=== PATIENT | male | born 1950 | race Caucasian/White ===

== ENCOUNTER 2019-03-24 08:15 | Inpatient (IN) | payer MEDICARE ==
[2019-03-24] MEDS ORDERED: Diltiazem 25 MG/5 ML SDV IVPUSH ONE ×3 (08:22→16:00)
[2019-03-24] MEDS: Sodium Chloride 0.9% 1,000 ML IV SCH ×3 (08:29→17:57)
--- NOTE | 2019-03-24 09:05 | CR ---
Chest: Frontal view of the chest was obtained. Comparison: Prior chest CT study of 01/22/19. Diffuse increased density is noted within the left lung base. Lung markings are also mildly increased within the right base. Expansile lesion noted with posterior right 6th rib which appears stable from previous chest CT. Impression: 1. Increased density within the left lung base as well as increased lung markings on the right lung base. Findings are most likely due to pneumonia and bronchitis. Please correlate with the patient's symptoms. 2. Expansile lesion within the posterior right 6th rib which is stable from prior CT exam. Diagnostic code #5 This report was dictated in [place] Standard Time
[2019-03-24 09:25] LABS: BLOOD UREA NITROGEN,BUN 33 mg/dL (7.0-18.0); CARBON DIOXIDE,CO2 20.3 mmol/L (21.0-32.0); CHLORIDE,CL 104 mmol/L (98-107); GLUCOSE RANDOM 191 mg/dL (74-106); POTASSIUM,K 3.8 mmol/L (3.5-5.1); SODIUM,NA 140 mmol/L (136-148)
[2019-03-24] MEDS ORDERED: Enoxaparin 100 MG/1 ML Syringe SUBCUT ONE (09:49)
[2019-03-24] MEDS ORDERED: Piperacillin/Tazobactam 3.375 GM in Sodium Chloride 0.9% 50 ML IV ONE (09:52)
[2019-03-24] MEDS ORDERED: Diltiazem 100 MG in Sodium Chloride 0.9% 100 ML IV SCH (10:00)
[2019-03-24] MEDS ORDERED: Diltiazem 125 MG in Sodium Chloride 0.9% 100 ML IV SCH (10:00)
--- NOTE | 2019-03-24 10:00 | EDM.PDOC ---
ED HPI GENERAL MEDICAL PROBLEM - General Chief Complaint: Respiratory Problem Stated Complaint: TROUBLE BREATHING Time Seen by Provider: 03/24/19 09:55 Source of Information: Reports: Patient, EMS - History of Present Illness INITIAL COMMENTS - FREE TEXT/NARRATIVE: HISTORY AND PHYSICAL: History of present illness: [pt via EMS Patient has a history of stage IV lung cancer with his first round of chemo on Sunday he was up and about the community T today with acute onset shortness of breath and hypoxia 88% on room air generally not on home oxygen He arrives with 5 L nonrebreather satting 94% no distress, room air 88% ] Review of systems: As per history of present illness and below otherwise all systems reviewed and negative. Past medical history: As per history of present illness and as reviewed below otherwise noncontributory. Surgical history: As per history of present illness and as reviewed below otherwise noncontributory. Social history: No reported history of drug or alcohol abuse. Family history: As per history of present illness and as reviewed below otherwise noncontributory. Physical exam: HEENT: Atraumatic, normocephalic, pupils reactive, negative for conjunctival pallor or scleral icterus, mucous membranes moist, throat clear, neck supple, nontender, trachea midline. Lungs: Bilateral crackles at base, breath sounds equal bilaterally, chest nontender. Heart: S1S2, regular, negative for clicks, rubs, or JVD. Abdomen: Soft, nondistended, nontender. Negative for masses or hepatosplenomegaly. Negative for costovertebral tenderness. Pelvis: Stable nontender. Genitourinary: Deferred. Rectal: Deferred. Extremities: Atraumatic, negative for cords or calf pain. Neurovascular unremarkable. Neuro: Awake, alert, oriented. Cranial nerves II through XII unremarkable. Cerebellum unremarkable. Motor and sensory unremarkable throughout. Exam nonfocal. Diagnostics: [cbc CMP UA troponin INR ] ekg Chest 1 view Therapeutics: [Normal saline Cardizem 25 IV followed by 20 IV cardizem drip Lovenox Comycin Zosyn Impression: [Hypoxia Pneumonia Atrial fibrillation with RVR r/o PE Leukopenia Age for lung cancer on chemotherapy Chronic history of baseline ] Definitive disposition and diagnosis as appropriate pending reevaluation and review of above. - Related Data Allergies Allergy/AdvReac Type Severity Reaction Status Date / Time atorvastatin [From Lipitor] Allergy Rash Verified 03/24/19 08:21 Past Medical History HEENT History: Reports: Impaired Vision Cardiovascular History: Reports: Hypertension Respiratory History: Reports: None Gastrointestinal History: Reports: None Genitourinary History: Reports: None Musculoskeletal History: Reports: None Neurological History: Reports: None Psychiatric History: Reports: None Endocrine/Metabolic History: Reports: Diabetes, Type II Hematologic History: Reports: None Immunologic History: Reports: None Oncologic (Cancer) History: Reports: Lung Dermatologic History: Reports: None - Infectious Disease History Infectious Disease History: Reports: Chicken Pox, Mumps - Past Surgical History Head Surgeries/Procedures: Reports: None HEENT Surgical History: Reports: None Cardiovascular Surgical History: Reports: None Respiratory Surgical History: Reports: None GI Surgical History: Reports: None Male Surgical History: Reports: None Endocrine Surgical History: Reports: None Neurological Surgical History: Reports: None Musculoskeletal Surgical History: Reports: None Oncologic Surgical History: Reports: None Dermatological Surgical History: Reports: None Social & Family History - Family History Family Medical History: Noncontributory - Tobacco Use Smoking Status *Q: Former Smoker Used Tobacco, but Quit: Yes Month/Year Tobacco Last Used: 2004 - Caffeine Use Caffeine Use: Reports: Coffee - Recreational Drug Use Recreational Drug Use: No ED ROS GENERAL - Review of Systems Review Of Systems: See Below ED EXAM, GENERAL - Physical Exam Exam: See Below Course - Vital Signs Last Recorded V/S: Last Vital Signs Temp 97.6 F 03/24/19 08:21 Pulse 98 03/24/19 09:20 Resp 30 H 03/24/19 08:21 BP 125/85 03/24/19 08:21 Pulse Ox 95 03/24/19 08:21 - Orders/Labs/Meds Orders: Active Orders 24 hr Category Date Time Status EKG Documentation Completion [RC] STAT Care 03/24/19 08:28 Active CULTURE BLOOD [BC] Stat Lab 03/24/19 08:30 Received CULTURE BLOOD [BC] Stat Lab 03/24/19 08:47 Received UA RFX LION AND CULT IF INDIC [URIN] Stat Lab 03/24/19 08:23 Ordered Diltiazem [Cardizem] 100 mg Med 03/24/19 10:00 Active Sodium Chloride 0.9% [Normal Saline] 100 ml IV NOW Piperacillin/Tazobactam [Piperacil-Tazobact] 3.375 gm Med 03/24/19 09:52 Active Sodium Chloride 0.9% [Normal Saline] 50 ml IV ONETIME Sodium Chloride 0.9% [Normal Saline] 1,000 ml Med 03/24/19 08:30 Active IV STAT Vancomycin 1 gm Med 03/24/19 09:52 Active Sodium Chloride 0.9% [Normal Saline (AdvBag)] 250 ml IV ONETIME Blood Culture x2 Reflex Set [OM.PC] Stat Oth 03/24/19 08:24 Ordered Medication Orders Sodium Chloride (Normal Saline) 1,000 mls @ 125 mls/hr IV STAT ODILIA Last Admin: 03/24/19 08:29 Dose: 125 mls/hr Piperacillin Sod/Tazobactam (Sod 3.375 gm/ Sodium Chloride) 50 mls @ 100 mls/ hr IV ONETIME ONE Stop: 03/24/19 10:21 Vancomycin HCl 1 gm/ Sodium (Chloride) 250 mls @ 166 mls/hr IV ONETIME ONE Stop: 03/24/19 11:22 Diltiazem HCl 100 mg/ Sodium (Chloride) 100 mls @ 10 mls/hr IV NOW [facility]; Protocol Labs: Laboratory Tests 03/24/19 03/24/19 03/24/19 Range/Units 08:30 08:30 08:30 WBC 0.43 L (4.0-11.0) K/uL RBC 3.57 L (4.50-5.90) M/uL Hgb 10.7 L (13.0-17.0) g/dL Hct 32.2 L (38.0-50.0) % MCV 90.2 (80.0-98.0) fL MCH 30.0 (27.0-32.0) pg MCHC 33.2 (31.0-37.0) g/dL RDW Std Deviation 57.1 (28.0-62.0) fl RDW Coeff of Pipe 17 H (11.0-15.0) % Plt Count 67 L (150-400) K/uL MPV 9.20 (7.40-12.00) fL Add Manual Diff YES Neutrophils % (Manual) 22 L (48.0-80.0) % Band Neutrophils % 58 % Lymphocytes % (Manual) 8 L (16.0-40.0) % Monocytes % (Manual) 10 (0.0-15.0) % Metamyelocytes % 2 % Nucleated RBC % 0.0 /100WBC Absolute Seg Neuts 0.1 L (1.4-5.7) Band Neutrophils # 0.2 Lymphocytes # (Manual) 0.0 L (0.6-2.4) Monocytes # (Manual) 0.0 (0.0-0.8) Absolute Metamyelocyte 0 Nucleated RBCs # 0 K/uL Toxic Granulation 2+ MODERATE Dohle Bodies 1+ SLIGHT INR 0.92 Lactate (0.20-2.00) mmol/L Sodium 140 (136-148) mmol/L Potassium 3.8 (3.5-5.1) mmol/L Chloride 104 (98-107) mmol/L Carbon Dioxide 20.3 L (21.0-32.0) mmol/L BUN 33 H (7.0-18.0) mg/dL Creatinine 0.8 (0.8-1.3) mg/dL Est Cr Clr Drug Dosing 93.78 mL/min Estimated GFR (MDRD) > 60.0 ml/min Glucose 191 H (74-106) mg/dL Calcium 8.1 L (8.5-10.1) mg/dL Total Bilirubin 0.3 (0.2-1.0) mg/dL AST 25 (15-37) IU/L ALT 25 (14-63) IU/L Alkaline Phosphatase 73 (46-116) U/L Troponin I < 0.050 (0.000-0.056) ng/mL Total Protein 6.5 (6.4-8.2) g/dL Albumin 1.6 L (3.4-5.0) g/dL Globulin 4.9 H (2.6-4.0) g/dL Albumin/Globulin Ratio 0.3 L (0.9-1.6) 03/24/19 Range/Units 08:30 WBC (4.0-11.0) K/uL RBC (4.50-5.90) M/uL Hgb (13.0-17.0) g/dL Hct (38.0-50.0) % MCV (80.0-98.0) fL MCH (27.0-32.0) pg MCHC (31.0-37.0) g/dL RDW Std Deviation (28.0-62.0) fl RDW Coeff of Pipe (11.0-15.0) % Plt Count (150-400) K/uL MPV (7.40-12.00) fL Add Manual Diff Neutrophils % (Manual) (48.0-80.0) % Band Neutrophils % % Lymphocytes % (Manual) (16.0-40.0) % Monocytes % (Manual) (0.0-15.0) % Metamyelocytes % % Nucleated RBC % /100WBC Absolute Seg Neuts (1.4-5.7) Band Neutrophils # Lymphocytes # (Manual) (0.6-2.4) Monocytes # (Manual) (0.0-0.8) Absolute Metamyelocyte Nucleated RBCs # K/uL Toxic Granulation Dohle Bodies INR Lactate 1.8 (0.20-2.00) mmol/L Sodium (136-148) mmol/L Potassium (3.5-5.1) mmol/L Chloride (98-107) mmol/L Carbon Dioxide (21.0-32.0) mmol/L BUN (7.0-18.0) mg/dL Creatinine (0.8-1.3) mg/dL Est Cr Clr Drug Dosing mL/min Estimated GFR (MDRD) ml/min Glucose (74-106) mg/dL Calcium (8.5-10.1) mg/dL Total Bilirubin (0.2-1.0) mg/dL AST (15-37) IU/L ALT (14-63) IU/L Alkaline Phosphatase (46-116) U/L Troponin I (0.000-0.056) ng/mL Total Protein (6.4-8.2) g/dL Albumin (3.4-5.0) g/dL Globulin (2.6-4.0) g/dL Albumin/Globulin Ratio (0.9-1.6) Meds: Medications Generic Name Dose Route Start Last Admin Trade Name Freq PRN Reason Stop Dose Admin Sodium Chloride 1,000 mls @ 125 mls/hr 03/24/19 08:30 03/24/19 08:29 Normal Saline IV 125 mls/hr STAT ODILIA Administration Piperacillin Sod/Tazobactam 50 mls @ 100 mls/hr 03/24/19 09:52 Sod 3.375 gm/ Sodium Chloride IV 03/24/19 10:21 ONETIME ONE Vancomycin HCl 1 gm/ Sodium 250 mls @ 166 mls/hr 03/24/19 09:52 Chloride IV 03/24/19 11:22 ONETIME ONE Diltiazem HCl 100 mg/ Sodium 100 mls @ 10 mls/hr 03/24/19 10:00 Chloride IV NOW ODILIA Protocol 10 MG/HR Discontinued Medications Generic Name Dose Route Start Last Admin Trade Name [place] PRN Reason Stop Dose Admin Diltiazem HCl 25 mg 03/24/19 08:22 03/24/19 08:28 Diltiazem IVPUSH 03/24/19 08:23 25 mg ONETIME ONE Administration Diltiazem HCl 20 mg 03/24/19 08:48 03/24/19 08:54 Diltiazem IVPUSH 03/24/19 08:49 20 mg ONETIME ONE Administration Enoxaparin Sodium 100 mg 03/24/19 09:49 Lovenox SUBCUT 03/24/19 09:50 ONETIME ONE Diltiazem HCl 125 mg/ Sodium 125 mls @ 10 mls/hr 03/24/19 10:00 Chloride IV NOW ODILIA Protocol 10 MG/HR Departure - Departure Time of Disposition: 09:59 Disposition: Admitted As Inpatient 68 Condition: Poor Clinical Impression: Hypoxia, Pneumonia, Atrial fibrillation with RVR - Discharge Information Referrals: Chris Bauer MD [Primary Care Provider] - Forms: ED Department Discharge Sepsis Event Note - Evaluation Sepsis Screening Result: Possible Sepsis Risk - Focused Exam Vital Signs: Vital Signs Temp Pulse Resp BP Pulse Ox 03/24/19 09:20 98 03/24/19 08:49 106 H 03/24/19 08:21 97.6 F 178 H 30 H 125/85 95 Date Exam was Performed: 03/24/19 Time Exam was Performed: 10:00 - My Orders Last 24 Hours: My Active Orders 03/24/19 08:23 UA RFX LION AND CULT IF INDIC [URIN] Stat 03/24/19 08:24 Blood Culture x2 Reflex Set [OM.PC] Stat 03/24/19 08:28 EKG Documentation Completion [RC] STAT 03/24/19 08:30 CULTURE BLOOD [BC] Stat Sodium Chloride 0.9% [Normal Saline] 1,000 ml IV STAT 03/24/19 08:47 CULTURE BLOOD [BC] Stat 03/24/19 09:52 Piperacillin/Tazobactam [Piperacil-Tazobact] 3.375 gm Sodium Chloride 0.9% [ Normal Saline] 50 ml IV ONETIME Vancomycin 1 gm Sodium Chloride 0.9% [Normal Saline (AdvBag)] 250 ml IV ONETIME 03/24/19 10:00 Diltiazem [Cardizem] 100 mg Sodium Chloride 0.9% [Normal Saline] 100 ml IV NOW - Assessment/Plan Last 24 Hours: My Active Orders 03/24/19 08:23 UA RFX LION AND CULT IF INDIC [URIN] Stat 03/24/19 08:24 Blood Culture x2 Reflex Set [OM.PC] Stat 03/24/19 08:28 EKG Documentation Completion [RC] STAT 03/24/19 08:30 CULTURE BLOOD [BC] Stat Sodium Chloride 0.9% [Normal Saline] 1,000 ml IV STAT 03/24/19 08:47 CULTURE BLOOD [BC] Stat 03/24/19 09:52 Piperacillin/Tazobactam [Piperacil-Tazobact] 3.375 gm Sodium Chloride 0.9% [ Normal Saline] 50 ml IV ONETIME Vancomycin 1 gm Sodium Chloride 0.9% [Normal Saline (AdvBag)] 250 ml IV ONETIME 03/24/19 10:00 Diltiazem [Cardizem] 100 mg Sodium Chloride 0.9% [Normal Saline] 100 ml IV NOW
[2019-03-24] MEDS ORDERED: Albuterol/Ipratropium 3.0-0.5 MG/3 ML Neb Soln NEB PRN (11:40)
[2019-03-24] MEDS ORDERED: Metoprolol Tartrate 5 MG/5 ML SDV IVPUSH ONE (11:40)
[2019-03-24] MEDS ORDERED: Piperacillin/Tazobactam 4.5 GM in Sodium Chloride 0.9% 100 ML IV SCH (11:45)
--- NOTE | 2019-03-24 11:51 | PCM.HP.2 ---
Addendum entered and electronically signed by Oriana Guzmán DO 03/24/19 16: 39: After the patient was admitted to the ICU, His HR was still elevated in the 140s-150s with Diltiazem drip and metoprolol. He was anticoagulated with full dose lovenox and warfarin. A CTA was obtained and showed PE with right heart strain and left sided pneumonia. He had been satting in the 90s on 5L. He received Levaquin, Zosyn, and Vanco while admitted. Echo was obtained but results were not back at time of transfer. It was felt that he would benefit from transfer to a higher level of care with an wire harness design engineer available. This was discussed with the patient who was agreeable. This was discussed with Dr. Fisher, ER physician, who accepted the patient. Patient will be transferred via ALS to [facility] in [place]. Original Note: <Oriana Guzmán - Last Filed: 03/24/19 11:46> H&P History of Present Illness - General Date of Service: 03/24/19 Admit Problem/Dx: Admission Diagnosis/Problem Admission Diagnosis/Problem Hypoxia - History of Present Illness Initial Comments - Free Text/Narative: The patient is a 68 year old male with past medical history of Stave IV lung cancer, HTN, hyperlipidemia, and DMII who had his first round of chemo on . For the past few days he has become more short of breath with productive cough. Has poor appetite. Denies fever/chills, chest pain, abdominal pain, nausea/vomiting, constipation/diarrhea, burning with urination. Denies hx of CHF , CO, COPD, or asthma. In the ER, work up found that he was pancytopenic, negative troponin. CXR showed increased density in bilateral lung bases consistent with pneumonia and stable lesion on right 6th rib. EKG showed Afib with RVR with rate of 179, no hx of Afib. He received 2 doses of Diltiazem with short term improvement but then it increased to 130s-140s and he was started on a diltiazem drip. He was also given full dose Lovenox. He was started on Vanco and Zosyn for pneumonia. PCP- Dr. Bauer - Related Data Allergies/Adverse Reactions: Allergies Allergy/AdvReac Type Severity Reaction Status Date / Time atorvastatin [From Lipitor] Allergy Rash Verified 03/24/19 08:21 Home Medications: Home Meds Fenofibrate Nanocrystallized [Fenofibrate] 145 mg PO DAILY 03/24/19 [History] Folic Acid 1 mg PO DAILY 03/24/19 [History] Losartan [Cozaar] 50 mg PO DAILY 03/24/19 [History] Metoprolol Succinate [Toprol XL 50mg] 50 mg PO DAILY 03/24/19 [History] Pantoprazole [ProTONIX] 40 mg PO BID 03/24/19 [History] Rosuvastatin Calcium 20 mg PO DAILY 03/24/19 [History] Sucralfate 1 gm PO BID 03/24/19 [History] dexAMETHasone [Dexamethasone] 4 mg PO DAILY 03/24/19 [History] metFORMIN [Glucophage] 500 mg PO BIDMEALS 03/24/19 [History] ondansetron HCL [Ondansetron HCl] 8 mg PO TID PRN 03/24/19 [History] Past Medical History HEENT History: Reports: Impaired Vision Cardiovascular History: Reports: Hypertension Respiratory History: Reports: None Gastrointestinal History: Reports: None Genitourinary History: Reports: None Musculoskeletal History: Reports: None Neurological History: Reports: None Psychiatric History: Reports: None Endocrine/Metabolic History: Reports: Diabetes, Type II Hematologic History: Reports: None Immunologic History: Reports: None Oncologic (Cancer) History: Reports: Lung Dermatologic History: Reports: None - Infectious Disease History Infectious Disease History: Reports: Chicken Pox, Mumps - Past Surgical History Head Surgeries/Procedures: Reports: None HEENT Surgical History: Reports: None Cardiovascular Surgical History: Reports: None Respiratory Surgical History: Reports: None GI Surgical History: Reports: None Male Surgical History: Reports: None Endocrine Surgical History: Reports: None Neurological Surgical History: Reports: None Musculoskeletal Surgical History: Reports: None Oncologic Surgical History: Reports: None Dermatological Surgical History: Reports: None Social & Family History - Family History Family Medical History: Noncontributory - Tobacco Use Smoking Status *Q: Former Smoker Used Tobacco, but Quit: Yes Month/Year Tobacco Last Used: 2004 - Caffeine Use Caffeine Use: Reports: Coffee - Recreational Drug Use Recreational Drug Use: No H&P Review of Systems - Review of Systems: Review Of Systems: See Below General: Reports: Weakness, Decreased Appetite. Denies: Fever, Chills HEENT: Reports: No Symptoms Pulmonary: Reports: Shortness of Breath, Wheezing, Cough Cardiovascular: Denies: Chest Pain, Edema Gastrointestinal: Reports: No Symptoms Genitourinary: Reports: No Symptoms Musculoskeletal: Reports: No Symptoms Skin: Reports: No Symptoms Psychiatric: Reports: No Symptoms Hematologic/Lymphatic: Reports: Anemia Immunologic: Reports: No Symptoms Exam - Exam Exam: See Below - Vital Signs Vital Signs: Last Vital Signs Temp 97.6 F 03/24/19 10:26 Pulse 139 H 03/24/19 10:26 Resp 26 H 03/24/19 10:26 BP 129/62 03/24/19 10: Pulse Ox 93 L 03/24/19 10:26 Weight: 82.236 kg - Exam Quality Assessment: Supplemental Oxygen General: Alert, Oriented, Cooperative HEENT: Conjunctiva Clear, EOMI, Posterior Pharynx Clear, Pupils Equal, Pupils Reactive Neck: Supple Lungs: Crackles, Rhonchi. No: Normal Respiratory Effort Cardiovascular: Irregular Rhythm. No: Regular Rhythm GI/Abdominal Exam: Normal Bowel Sounds, Soft, Non-Tender, No Distention Extremities: No Pedal Edema Skin: Warm, Dry, Intact Neuro Extensive - Mental Status: Alert, Oriented x3 Psychiatric: Alert, Normal Affect, Normal Mood - Patient Data Lab Results Last 24 hrs: Laboratory Results - last 24 hr 03/24/19 03/24/19 03/24/19 Range/Units 08:30 08:30 08:30 WBC 0.43 L (4.0-11.0) K/uL RBC 3.57 L (4.50-5.90) M/uL Hgb 10.7 L (13.0-17.0) g/dL Hct 32.2 L (38.0-50.0) % MCV 90.2 (80.0-98.0) fL MCH 30.0 (27.0-32.0) pg MCHC 33.2 (31.0-37.0) g/dL RDW Std Deviation 57.1 (28.0-62.0) fl RDW Coeff of Pipe 17 H (11.0-15.0) % Plt Count 67 L (150-400) K/uL MPV 9.20 (7.40-12.00) fL Add Manual Diff YES Neutrophils % (Manual) 22 L (48.0-80.0) % Band Neutrophils % 58 % Lymphocytes % (Manual) 8 L (16.0-40.0) % Monocytes % (Manual) 10 (0.0-15.0) % Metamyelocytes % 2 % Nucleated RBC % 0.0 /100WBC Absolute Seg Neuts 0.1 L (1.4-5.7) Band Neutrophils # 0.2 Lymphocytes # (Manual) 0.0 L (0.6-2.4) Monocytes # (Manual) 0.0 (0.0-0.8) Absolute Metamyelocyte 0 Nucleated RBCs # 0 K/uL Toxic Granulation 2+ MODERATE Dohle Bodies 1+ SLIGHT INR 0.92 Lactate (0.20-2.00) mmol/L Sodium 140 (136-148) mmol/L Potassium 3.8 (3.5-5.1) mmol/L Chloride 104 (98-107) mmol/L Carbon Dioxide 20.3 L (21.0-32.0) mmol/L BUN 33 H (7.0-18.0) mg/dL Creatinine 0.8 (0.8-1.3) mg/dL Est Cr Clr Drug Dosing 93.78 mL/min Estimated GFR (MDRD) > 60.0 ml/min Glucose 191 H (74-106) mg/dL Calcium 8.1 L (8.5-10.1) mg/dL Total Bilirubin 0.3 (0.2-1.0) mg/dL AST 25 (15-37) IU/L ALT 25 (14-63) IU/L Alkaline Phosphatase 73 (46-116) U/L Troponin I < 0.050 (0.000-0.056) ng/mL Total Protein 6.5 (6.4-8.2) g/dL Albumin 1.6 L (3.4-5.0) g/dL Globulin 4.9 H (2.6-4.0) g/dL Albumin/Globulin Ratio 0.3 L (0.9-1.6) 03/24/19 Range/Units 08:30 WBC (4.0-11.0) K/uL RBC (4.50-5.90) M/uL Hgb (13.0-17.0) g/dL Hct (38.0-50.0) % MCV (80.0-98.0) fL MCH (27.0-32.0) pg MCHC (31.0-37.0) g/dL RDW Std Deviation (28.0-62.0) fl RDW Coeff of Pipe (11.0-15.0) % Plt Count (150-400) K/uL MPV (7.40-12.00) fL Add Manual Diff Neutrophils % (Manual) (48.0-80.0) % Band Neutrophils % % Lymphocytes % (Manual) (16.0-40.0) % Monocytes % (Manual) (0.0-15.0) % Metamyelocytes % % Nucleated RBC % /100WBC Absolute Seg Neuts (1.4-5.7) Band Neutrophils # Lymphocytes # (Manual) (0.6-2.4) Monocytes # (Manual) (0.0-0.8) Absolute Metamyelocyte Nucleated RBCs # K/uL Toxic Granulation Dohle Bodies INR Lactate 1.8 (0.20-2.00) mmol/L Sodium (136-148) mmol/L Potassium (3.5-5.1) mmol/L Chloride (98-107) mmol/L Carbon Dioxide (21.0-32.0) mmol/L BUN (7.0-18.0) mg/dL Creatinine (0.8-1.3) mg/dL Est Cr Clr Drug Dosing mL/min Estimated GFR (MDRD) ml/min Glucose (74-106) mg/dL Calcium (8.5-10.1) mg/dL Total Bilirubin (0.2-1.0) mg/dL AST (15-37) IU/L ALT (14-63) IU/L Alkaline Phosphatase (46-116) U/L Troponin I (0.000-0.056) ng/mL Total Protein (6.4-8.2) g/dL Albumin (3.4-5.0) g/dL Globulin (2.6-4.0) g/dL Albumin/Globulin Ratio (0.9-1.6) Result Diagrams: 03/24/19 08:30 03/24/19 08:30 Sepsis Event Note - Evaluation Sepsis Screening Result: Possible Sepsis Risk - Focused Exam Vital Signs: Vital Signs Temp Pulse Resp BP Pulse Ox 03/24/19 10:26 97.6 F 139 H 26 H 129/62 93 L 03/24/19 09:20 98 03/24/19 08:49 106 H 03/24/19 08:21 97.6 F 178 H 30 H 125/85 95 Date Exam was Performed: 03/24/19 Time Exam was Performed: 11:46 Problem List Initiated/Reviewed/Updated: Yes Orders Last 24hrs: Active Orders 24 hr Category Date Time Status Admission Status [Patient Status] [ADT] Stat ADT 03/24/19 10:01 Active Cardiac Monitoring [RC] . DIRECTED Care 03/24/19 11:40 Ordered EKG Documentation Completion [RC] STAT Care 03/24/19 08:28 Active Incentive Spirometry [RT Incentive Spirometry] [RC] Care 03/24/19 11:40 Ordered Q1HWA Intake and Output [RC] ASDIRECTED Care 03/24/19 11:40 Ordered RT Aerosol Therapy [RC] ASDIRECTED Care 03/24/19 11:41 Ordered Vital Signs [RC] PER UNIT ROUTINE Care 03/24/19 11:40 Ordered Neutropenic [DIET] Diet 03/24/19 Dinner Ordered Ang Chest [CT] Stat Exams 03/24/19 11:40 Ordered Echo Comp wo Cont [US] Stat Exams 03/24/19 11:40 Ordered BASIC METABOLIC PANEL,BMP [CHEM] AM Lab 03/25/19 05:11 Ordered CBC WITH AUTO DIFF [HEME] AM Lab 03/25/19 05:11 Ordered CULTURE BLOOD [BC] Stat Lab 03/24/19 08:30 Received CULTURE BLOOD [BC] Stat Lab 03/24/19 08:47 Received INR,PT,PROTHROMBIN TIME [COAG] AM Lab 03/25/19 05:11 Ordered INR,PT,PROTHROMBIN TIME [COAG] AM Lab 03/26/19 05:11 Ordered UA RFX JOHNY AND CULT IF INDIC [URIN] Stat Lab 03/24/19 08:23 Ordered Albuterol/Ipratropium [DuoNeb 3.0-0.5 MG/3 ML] Med 03/24/19 11:40 Ordered 3 ml NEB Q4HRRT PRN Diltiazem [Cardizem] 100 mg Med 03/24/19 10:00 Active Sodium Chloride 0.9% [Normal Saline] 100 ml IV NOW Levofloxacin/Dextrose 5%-Water [Levaquin in D5W 750 MG/ Med 03/24/19 11:45 Ordered 150 ML] 750 mg Premix Bag 1 bag IV Q24H Metoprolol Tartrate [Lopressor] Med 03/24/19 11:40 Once 5 mg IVPUSH ONETIME ONE Pharmacy to Dose - Vancomycin Med 03/24/19 11:45 Ordered 1 dose .XX ASDIRECTED Piperacillin/Tazobactam [Piperacil-Tazobact] 4.5 gm Med 03/24/19 11:45 Ordered Sodium Chloride 0.9% [Normal Saline] 100 ml IV Q6H Sodium Chloride 0.9% [Normal Saline] 1,000 ml Med 03/24/19 08:30 Active IV STAT Warfarin [Coumadin] Med 03/24/19 21:00 Ordered See Dose Instructions PO .Pharmacy To Dose Blood Culture x2 Reflex Set [OM.PC] Stat Oth 03/24/19 08:24 Ordered Resuscitation Status Routine Resus Stat 03/24/19 11:40 Ordered Medication Orders Albuterol/Ipratropium (Duoneb 3.0-0.5 Mg/3 Ml) 3 ml NEB Q4HRRT PRN PRN Reason: Shortness of Breath Sodium Chloride (Normal Saline) 1,000 mls @ 125 mls/hr IV STAT ODILIA Last Admin: 03/24/19 08:29 Dose: 125 mls/hr Diltiazem HCl 100 mg/ Sodium (Chloride) 100 mls @ 10 mls/hr IV NOW ODILIA; Protocol Last Admin: 03/24/19 10:31 Dose: 10 mg/hr, 10 mls/hr Levofloxacin/Dextrose 750 mg/ (Premix) 150 mls @ 100 mls/hr IV Q24H ODILIA Piperacillin Sod/Tazobactam (Sod 4.5 gm/ Sodium Chloride) 100 mls @ 100 mls/hr IV Q6H ODILIA Metoprolol Tartrate (Lopressor) 5 mg IVPUSH ONETIME ONE Stop: 03/24/19 11:41 Vancomycin HCl (Pharmacy To Dose - Vancomycin) 1 dose .XX ASDIRECTED ODILIA Warfarin Sodium (Coumadin) 0 mg PO .Pharmacy To Dose [facility] Assessment/Plan Comment:: 1. Admit as inpatient to ICU 2. Code status- full 3. Vitals per routine 4. I/Os per routine 5. Diet- neutropenic 6. DVT prophylaxis- received full dose Lovenox, will be placed on warfarin 7. Afib with RVR- CHADSVAC score of 2 (age/HTN), continue Diltazem drip, will give one time dose of IV metoprolol and then continue po home dose of metoprolol. Will transition to warfarin for anticoagulation. Will obtain echo and CTA. 8. Acute hypoxic respiratory infection- suspect gram negative infection- patient is immunocompromised so will treat with broad spectrum antibiotics- Vancomycin, Zosyn, and Levaquin. Duonebs prn and encourage IS. 9. Pancytopenia secondary to chemotherapy- continue to monitor 10. HTN- continue home meds 11. DMII- hold metformin, place on accuchecks and sliding scale. <Vibha Clemens - Last Filed: 03/24/19 19:45> H&P History of Present Illness - General Admit Problem/Dx: Admission Diagnosis/Problem Admission Diagnosis/Problem Hypoxia Exam - Vital Signs Vital Signs: Last Vital Signs Temp 36.6 C 03/24/19 11:40 Pulse 146 H 03/24/19 15:11 Resp 33 H 03/24/19 11:40 BP 109/67 03/24/19 15:11 Pulse Ox 94 L 03/24/19 11:40 - Patient Data Lab Results Last 24 hrs: Laboratory Results - last 24 hr 03/24/19 03/24/19 03/24/19 Range/Units 08:30 08:30 08:30 WBC 0.43 L (4.0-11.0) K/uL RBC 3.57 L (4.50-5.90) M/uL Hgb 10.7 L (13.0-17.0) g/dL Hct 32.2 L (38.0-50.0) % MCV 90.2 (80.0-98.0) fL MCH 30.0 (27.0-32.0) pg MCHC 33.2 (31.0-37.0) g/dL RDW Std Deviation 57.1 (28.0-62.0) fl RDW Coeff of Pipe 17 H (11.0-15.0) % Plt Count 67 L (150-400) K/uL MPV 9.20 (7.40-12.00) fL Add Manual Diff YES Neutrophils % (Manual) 22 L (48.0-80.0) % Band Neutrophils % 58 % Lymphocytes % (Manual) 8 L (16.0-40.0) % Monocytes % (Manual) 10 (0.0-15.0) % Metamyelocytes % 2 % Nucleated RBC % 0.0 /100WBC Absolute Seg Neuts 0.1 L (1.4-5.7) Band Neutrophils # 0.2 Lymphocytes # (Manual) 0.0 L (0.6-2.4) Monocytes # (Manual) 0.0 (0.0-0.8) Absolute Metamyelocyte 0 Nucleated RBCs # 0 K/uL Toxic Granulation 2+ MODERATE Dohle Bodies 1+ SLIGHT INR 0.92 ABG pH (7.35-7.45) ABG pCO2 (35-45) mmHG ABG pO2 (75-100) mmHG ABG HCO3 (22-26) mEq/L ABG Total CO2 ABG Base Excess (-2.0-2.0) Lactate (0.20-2.00) mmol/L Sodium 140 (136-148) mmol/L Potassium 3.8 (3.5-5.1) mmol/L Chloride 104 (98-107) mmol/L Carbon Dioxide 20.3 L (21.0-32.0) mmol/L BUN 33 H (7.0-18.0) mg/dL Creatinine 0.8 (0.8-1.3) mg/dL Est Cr Clr Drug Dosing 93.78 mL/min Estimated GFR (MDRD) > 60.0 ml/min Glucose 191 H (74-106) mg/dL POC Glucose (60-110) mg/dL Calcium 8.1 L (8.5-10.1) mg/dL Magnesium (1.8-2.4) mg/dL Total Bilirubin 0.3 (0.2-1.0) mg/dL AST 25 (15-37) IU/L ALT 25 (14-63) IU/L Alkaline Phosphatase 73 (46-116) U/L Troponin I < 0.050 (0.000-0.056) ng/mL Total Protein 6.5 (6.4-8.2) g/dL Albumin 1.6 L (3.4-5.0) g/dL Globulin 4.9 H (2.6-4.0) g/dL Albumin/Globulin Ratio 0.3 L (0.9-1.6) TSH 3rd Generation (0.36-3.74) uIU/mL Urine Color Urine Appearance Urine pH (5.0-8.0) Ur Specific [place] (1.001-1.035) Urine Protein (NEGATIVE) mg/dL Urine Glucose (UA) (NEGATIVE) mg/dL Urine Ketones (NEGATIVE) mg/dL Urine Occult Blood (NEGATIVE) Urine Nitrite (NEGATIVE) Urine Bilirubin (NEGATIVE) Urine Urobilinogen (<2.0) EU/dL Ur Leukocyte Esterase (NEGATIVE) Urine RBC (0-2/HPF) Urine WBC (0-5/HPF) Ur Epithelial Cells (NONE-FEW) Urine Bacteria (NEGATIVE) Hyaline Casts (0-2/LPF) Urine Mucus (NONE-MOD) 03/24/19 03/24/19 03/24/19 Range/Units 08:30 08:30 13:30 WBC (4.0-11.0) K/uL RBC (4.50-5.90) M/uL Hgb (13.0-17.0) g/dL Hct (38.0-50.0) % MCV (80.0-98.0) fL MCH (27.0-32.0) pg MCHC (31.0-37.0) g/dL RDW Std Deviation (28.0-62.0) fl RDW Coeff of Pipe (11.0-15.0) % Plt Count (150-400) K/uL MPV (7.40-12.00) fL Add Manual Diff Neutrophils % (Manual) (48.0-80.0) % Band Neutrophils % % Lymphocytes % (Manual) (16.0-40.0) % Monocytes % (Manual) (0.0-15.0) % Metamyelocytes % % Nucleated RBC % /100WBC Absolute Seg Neuts (1.4-5.7) Band Neutrophils # Lymphocytes # (Manual) (0.6-2.4) Monocytes # (Manual) (0.0-0.8) Absolute Metamyelocyte Nucleated RBCs # K/uL Toxic Granulation Dohle Bodies INR ABG pH (7.35-7.45) ABG pCO2 (35-45) mmHG ABG pO2 (75-100) mmHG ABG HCO3 (22-26) mEq/L ABG Total CO2 ABG Base Excess (-2.0-2.0) Lactate 1.8 (0.20-2.00) mmol/L Sodium (136-148) mmol/L Potassium (3.5-5.1) mmol/L Chloride (98-107) mmol/L Carbon Dioxide (21.0-32.0) mmol/L BUN (7.0-18.0) mg/dL Creatinine (0.8-1.3) mg/dL Est Cr Clr Drug Dosing mL/min Estimated GFR (MDRD) ml/min Glucose (74-106) mg/dL POC Glucose (60-110) mg/dL Calcium (8.5-10.1) mg/dL Magnesium 2.6 H (1.8-2.4) mg/dL Total Bilirubin (0.2-1.0) mg/dL AST (15-37) IU/L ALT (14-63) IU/L Alkaline Phosphatase (46-116) U/L Troponin I (0.000-0.056) ng/mL Total Protein (6.4-8.2) g/dL Albumin (3.4-5.0) g/dL Globulin (2.6-4.0) g/dL Albumin/Globulin Ratio (0.9-1.6) TSH 3rd Generation 0.50 (0.36-3.74) uIU/mL Urine Color DARK YELLOW Urine Appearance SLT CLOUDY Urine pH 5.5 (5.0-8.0) Ur Specific [place] >= 1.030 (1.001-1.035) Urine Protein 100 H (NEGATIVE) mg/dL Urine Glucose (UA) NEGATIVE (NEGATIVE) mg/dL Urine Ketones NEGATIVE (NEGATIVE) mg/dL Urine Occult Blood TRACE-INTACT H (NEGATIVE) Urine Nitrite NEGATIVE (NEGATIVE) Urine Bilirubin NEGATIVE (NEGATIVE) Urine Urobilinogen 0.2 (<2.0) EU/dL Ur Leukocyte Esterase NEGATIVE (NEGATIVE) Urine RBC 0-3 (0-2/HPF) Urine WBC 0-2 (0-5/HPF) Ur Epithelial Cells FEW (NONE-FEW) Urine Bacteria FEW (NEGATIVE) Hyaline Casts 1-3 (0-2/LPF) Urine Mucus MODERATE (NONE-MOD) 03/24/19 03/24/19 Range/Units 14:19 18:05 WBC (4.0-11.0) K/uL RBC (4.50-5.90) M/uL Hgb (13.0-17.0) g/dL Hct (38.0-50.0) % MCV (80.0-98.0) fL MCH (27.0-32.0) pg MCHC (31.0-37.0) g/dL RDW Std Deviation (28.0-62.0) fl RDW Coeff of Pipe (11.0-15.0) % Plt Count (150-400) K/uL MPV (7.40-12.00) fL Add Manual Diff Neutrophils % (Manual) (48.0-80.0) % Band Neutrophils % % Lymphocytes % (Manual) (16.0-40.0) % Monocytes % (Manual) (0.0-15.0) % Metamyelocytes % % Nucleated RBC % /100WBC Absolute Seg Neuts (1.4-5.7) Band Neutrophils # Lymphocytes # (Manual) (0.6-2.4) Monocytes # (Manual) (0.0-0.8) Absolute Metamyelocyte Nucleated RBCs # K/uL Toxic Granulation Dohle Bodies INR ABG pH 7.398 (7.35-7.45) ABG pCO2 33 L (35-45) mmHG ABG pO2 69 L (75-100) mmHG ABG HCO3 20 L (22-26) mEq/L ABG Total CO2 18.9 ABG Base Excess -3.9 L (-2.0-2.0) Lactate (0.20-2.00) mmol/L Sodium (136-148) mmol/L Potassium (3.5-5.1) mmol/L Chloride (98-107) mmol/L Carbon Dioxide (21.0-32.0) mmol/L BUN (7.0-18.0) mg/dL Creatinine (0.8-1.3) mg/dL Est Cr Clr Drug Dosing mL/min Estimated GFR (MDRD) ml/min Glucose (74-106) mg/dL POC Glucose 208 H (60-110) mg/dL Calcium (8.5-10.1) mg/dL Magnesium (1.8-2.4) mg/dL Total Bilirubin (0.2-1.0) mg/dL AST (15-37) IU/L ALT (14-63) IU/L Alkaline Phosphatase (46-116) U/L Troponin I (0.000-0.056) ng/mL Total Protein (6.4-8.2) g/dL Albumin (3.4-5.0) g/dL Globulin (2.6-4.0) g/dL Albumin/Globulin Ratio (0.9-1.6) TSH 3rd Generation (0.36-3.74) uIU/mL Urine Color Urine Appearance Urine pH (5.0-8.0) Ur Specific [place] (1.001-1.035) Urine Protein (NEGATIVE) mg/dL Urine Glucose (UA) (NEGATIVE) mg/dL Urine Ketones (NEGATIVE) mg/dL Urine Occult Blood (NEGATIVE) Urine Nitrite (NEGATIVE) Urine Bilirubin (NEGATIVE) Urine Urobilinogen (<2.0) EU/dL Ur Leukocyte Esterase (NEGATIVE) Urine RBC (0-2/HPF) Urine WBC (0-5/HPF) Ur Epithelial Cells (NONE-FEW) Urine Bacteria (NEGATIVE) Hyaline Casts (0-2/LPF) Urine Mucus (NONE-MOD) Result Diagrams: 03/24/19 08:30 03/24/19 08:30 Johny Results Last 24 hrs: Microbiology 03/24/19 08:30 Aerobic Blood Culture - Preliminary Blood - Venous Sepsis Event Note - Focused Exam Vital Signs: Vital Signs Temp Pulse Pulse Resp BP BP Pulse Ox 03/24/19 15:11 146 H 109/67 03/24/19 15:06 109/67 03/24/19 12:05 133 H 174/110 H 03/24/19 11:40 36.6 C 33 H 170/90 H 94 L 03/24/19 10:26 36.4 C 139 H 26 H 129/62 93 L 03/24/19 09:20 98 03/24/19 08:49 106 H 03/24/19 08:21 36.4 C 178 H 30 H 125/85 95 Date Exam was Performed: 03/24/19 Time Exam was Performed: 19:35 Orders Last 24hrs: Active Orders 24 hr Category Date Time Status Admission Status [Patient Status] [ADT] Stat ADT 03/24/19 10:01 Active Blood Glucose Check, Bedside [RC] TIDMEALS Care 03/24/19 11:57 Active Cardiac Monitoring [RC] . DIRECTED Care 03/24/19 11:40 Active EKG Documentation Completion [RC] STAT Care 03/24/19 08:28 Active Incentive Spirometry [RT Incentive Spirometry] [RC] Care 03/24/19 11:40 Active Q1HWA Intake and Output [RC] ASDIRECTED Care 03/24/19 11:40 Active RT Aerosol Therapy [RC] ASDIRECTED Care 03/24/19 11:41 Active Ready for Discharge [RC] PER UNIT ROUTINE Care 03/24/19 16:36 Active Vital Signs [RC] PER UNIT ROUTINE Care 03/24/19 11:40 Active Neutropenic [DIET] Diet 03/24/19 Dinner Active Echo Comp wo Cont [US] Stat Exams 03/24/19 11:40 Taken BASIC METABOLIC PANEL,BMP [CHEM] AM Lab 03/25/19 05:11 Ordered CBC WITH AUTO DIFF [HEME] AM Lab 03/25/19 05:11 Ordered CULTURE BLOOD [BC] Stat Lab 03/24/19 08:30 Results CULTURE BLOOD [BC] Stat Lab 03/24/19 08:47 Received CULTURE MRSA [RM] Routine Lab 03/24/19 15:02 Ordered CULTURE SPUTUM + SMEAR [RM] Stat Lab 03/24/19 13:45 Ordered INFLUENZA A+B AG SCREEN [RM] Stat Lab 03/24/19 13:46 Ordered INR,PT,PROTHROMBIN TIME [COAG] AM Lab 03/25/19 05:11 Ordered INR,PT,PROTHROMBIN TIME [COAG] AM Lab 03/26/19 05:11 Ordered LEGIONELLA ANTIGEN [MREF] Routine Lab 03/24/19 15:02 Ordered RESPIRATORY PANEL Routine Lab 03/24/19 15:45 Ordered STREP PNEUMONIAE ANTIGEN [MREF] Routine Lab 03/24/19 15:02 Ordered VANCOMYCIN TROUGH [CHEM] Routine Lab 03/26/19 02:00 Ordered Acetaminophen [Tylenol] Med 03/24/19 13:48 Active 650 mg PO Q4H PRN Albuterol/Ipratropium [DuoNeb 3.0-0.5 MG/3 ML] Med 03/24/19 11:40 Active 3 ml NEB Q4HRRT PRN Diltiazem [Cardizem] 100 mg Med 03/24/19 10:00 Active Sodium Chloride 0.9% [Normal Saline] 100 ml IV NOW Folic Acid Med 03/24/19 14:00 Active 1 mg PO DAILY Insulin Aspart [NovoLOG] Med 03/24/19 17:00 Active See Protocol SUBCUT TIDAC Levofloxacin/Dextrose 5%-Water [Levaquin in D5W 750 MG/ Med 03/24/19 13:00 Active 150 ML] 750 mg Premix Bag 1 bag IV Q24H Losartan [Cozaar] Med 03/24/19 14:00 Active 50 mg PO DAILY Metoprolol Succinate [Toprol XL] Med 03/24/19 14:00 Active 50 mg PO DAILY Ondansetron [Zofran] Med 03/24/19 13:48 Active 4 mg IVPUSH Q4H PRN Pantoprazole [ProTONIX] Med 03/24/19 21:00 Active 40 mg PO BID Patient's Own Medication [Ptom] Med 03/24/19 14:00 Active 1 each PO DAILY Pharmacy to Dose - Vancomycin Med 03/24/19 11:45 Active 1 dose .XX ASDIRECTED Piperacillin/Tazobactam [Piperacil-Tazobact] 4.5 gm Med 03/24/19 11:45 Active Sodium Chloride 0.9% [Normal Saline] 100 ml IV Q6H Rosuvastatin [Crestor] Med 03/24/19 14:00 Active 20 mg PO DAILY Sodium Chloride 0.9% [Normal Saline] 1,000 ml Med 03/24/19 15:45 Active IV ASDIRECTED Sodium Chloride 0.9% [Normal Saline] 1,000 ml Med 03/24/19 08:30 Active IV STAT Sodium Chloride 0.9% [Normal Saline] 500 ml Med 03/24/19 15:45 Active IV STAT Sucralfate [Carafate] Med 03/24/19 17:00 Active 1 gm PO BIDMEALS Vancomycin 1.25 gm Med 03/24/19 16:00 Active Sodium Chloride 0.9% [Normal Saline (AdvBag)] 250 ml IV Q12H Warfarin Dosing [Coumadin Ask] Med 03/24/19 21:00 Active See Dose Instructions PO .Pharmacy To Dose dexAMETHasone Med 03/24/19 14:00 Active 4 mg PO DAILY Blood Culture x2 Reflex Set [OM.PC] Stat Oth 03/24/19 08:24 Ordered Resuscitation Status Routine Resus Stat 03/24/19 11:40 Ordered Medication Orders Acetaminophen (Tylenol) 650 mg PO Q4H PRN PRN Reason: Pain/Fever Albuterol/Ipratropium (Duoneb 3.0-0.5 Mg/3 Ml) 3 ml NEB Q4HRRT PRN PRN Reason: Shortness of Breath Last Admin: 03/24/19 14:34 Dose: 3 ml Dexamethasone (Dexamethasone) 4 mg PO DAILY [facility] Last Admin: 03/24/19 15:10 Dose: 4 mg Folic Acid (Folic Acid) 1 mg PO DAILY [facility] Last Admin: 03/24/19 15:10 Dose: 1 mg Sodium Chloride (Normal Saline) 1,000 mls @ 125 mls/hr IV STAT [facility] Last Admin: 03/24/19 17:57 Dose: 125 mls/hr Infusion: 03/24/19 17:57 Dose: 125 mls/hr Admin: 03/24/19 16:49 Dose: 125 mls/hr Infusion: 03/24/19 16:29 Dose: 125 mls/hr Admin: 03/24/19 08:29 Dose: 125 mls/hr Diltiazem HCl 100 mg/ Sodium (Chloride) 100 mls @ 10 mls/hr IV NOW [facility]; Protocol Last Titration: 03/24/19 14:30 Dose: 15 mg/hr, 15 mls/hr Admin: 03/24/19 10:31 Dose: 10 mg/hr, 10 mls/hr Levofloxacin/Dextrose 750 mg/ (Premix) 150 mls @ 100 mls/hr IV Q24H [facility] Last Admin: 03/24/19 14:12 Dose: 100 mls/hr Piperacillin Sod/Tazobactam (Sod 4.5 gm/ Sodium Chloride) 100 mls @ 100 mls/hr IV Q6H [facility] Sodium Chloride (Normal Saline) 500 mls @ 999 mls/hr IV STAT [facility] Sodium Chloride (Normal Saline) 1,000 mls @ 125 mls/hr IV ASDIRECTED [facility] Vancomycin HCl 1.25 gm/ Sodium (Chloride) 250 mls @ 125 mls/hr IV Q12H [facility] Insulin Aspart (Novolog) 0 unit SUBCUT TIDAC [facility]; Protocol Losartan Potassium (Cozaar) 50 mg PO DAILY [facility] Last Admin: 03/24/19 15:06 Dose: 50 mg Metoprolol Succinate (Toprol Xl) 50 mg PO DAILY [facility] Last Admin: 03/24/19 15:11 Dose: 50 mg Ondansetron HCl (Zofran) 4 mg IVPUSH Q4H PRN PRN Reason: Nausea/Vomiting Pantoprazole Sodium (Protonix) 40 mg PO BID [facility] Fenofibrate Nanocrystallized 145 Mg 1 each PO DAILY [facility] Rosuvastatin Calcium (Crestor) 20 mg PO DAILY [facility] Last Admin: 03/24/19 15:10 Dose: 20 mg Sucralfate (Carafate) 1 gm PO BIDMEALS [facility] Vancomycin HCl (Pharmacy To Dose - Vancomycin) 1 dose .XX ASDIRECTED [facility] Warfarin Sodium (Coumadin Ask) 0 each PO .Pharmacy To Dose [facility] Assessment/Plan Comment:: I performed a history and physical exam of the patient and discussed management with resident. I have reviewed the residents note and agree with documented findings and plan unless otherwise specified in my note. Patient is 68 y/o M admitted for Acute hypoxic respiratory failure, Afib RVR, Given patient h/o Cancer and Hypoxia with tachycardia, i had a high suspicion for a PE, CTA obtained showed a Acute PE with evidence of right heart strain, Patient still in AFib RVR on Cardizem gtt and IV Metoprolol push, Lovenox, Continues to saturate in low 90s requiring high Oxygen (5-6lts), 2D ECHO done but read wont be available for 2 days. Given patient is at high risk for acutely decompensating to massive PE, we have no cardiology/interventional cardiology on site, it would be appropriate for the patient to be transferred at a tertiary care center for further management with appropriate sub- speciality support.
[2019-03-24] MEDS ORDERED: Levofloxacin/Dextrose 5%-Water 750 MG in Premix Bag 1 BAG IV SCH (13:00)
[2019-03-24] MEDS ORDERED: Acetaminophen 325 MG Tab PO PRN (13:48)
[2019-03-24] MEDS ORDERED: Ondansetron 4 MG/2 ML SDV IVPUSH PRN (13:48)
[2019-03-24] MEDS ORDERED: Fenofibrate Nanocrystallized 145 MG PO SCH (14:00)
[2019-03-24] MEDS ORDERED: Losartan 50 MG Tab PO SCH (14:00)
[2019-03-24] MEDS ORDERED: Metoprolol Succinate 50 MG Tab.ER PO SCH (14:00)
[2019-03-24] MEDS ORDERED: Folic Acid 1 MG Tab PO SCH (14:00)
[2019-03-24] MEDS ORDERED: Dexamethasone 4 MG Tab PO SCH (14:00)
[2019-03-24] MEDS ORDERED: Warfarin 10 MG Tab PO ONE (14:00)
[2019-03-24] MEDS ORDERED: Rosuvastatin 10 MG Tab PO SCH (14:00)
--- NOTE | 2019-03-24 14:55 | PN ---
THC Physician - Brief Progress [id number]/27/2020 14:30[facility] Carlton Mayo, NATASHA - LIVAN (SHAYNE) - LIVAN MENJIVARSAIDA MARY LevonDate of Service 03/24/2019 14:30HPI/Event s of Note eICU admission [id number] male with past medical history of stage IV lung cancer, hype rtension, DM 2 who presented to the ER with complaints of shortness of breath and cough. He mentions that he recently recently had his first round of chemo on 03/17/2019 and has become progressively mor e dyspneic since that time with an associated productive cough. In the ED he was noted to be tachyca rdic up to 170s with atrial fibrillation on EKG and his chest x-ray showing bibasilar infiltrates. P atient was started on Cardizem, Lovenox and given vancomycin/zosyn with subsequent [facility] to the [facility].Patient laying in bed, slightly distressed, able to converse with bedside nurse, getting breathing treatment. Vitals reviewed. HR 140'sLabs/EMR/Imaging reviewedAcute hypoxic resp failure 2/2 PNA- Agr ee with Vanc/Zosyn/levaquin- Please send MRSA nares, Legionella, Strep and Biofire along with blood/r tonio cultures - Recommend neutropenic precautions- Nebs PRN and agree with ISAfib w/ RVR- Likely secon jimmy to infectious process- Continue on cardizem drip. agree with giving PO lopressor once HR is bett er controlled - Agree with 2D echo, TSH- Recommend Potassium level 4.0 and Mg 2.0 - Anticoagulation p er primary team. DM2- ISS while inpatientDVT prophy- patient recieved 1x dose of lovenox, per EMR pat ietn to be placed on coumadin. GI prophy- on PPIInterventions Major-Hypoxemia - evaluation and manage ment, Infection - evaluation and management, Sepsis - evaluation and management
[2019-03-24] MEDS ORDERED: Potassium Chloride 20 MEQ Tab.ER PO ONE (15:05)
[2019-03-24] MEDS ORDERED: Diltiazem 25 MG/5 ML SDV ONE (15:28)
[2019-03-24] MEDS ORDERED: Sodium Chloride 0.9% 1,000 ML IV SCH (15:45)
[2019-03-24] MEDS ORDERED: Sodium Chloride 0.9% 500 ML IV SCH (15:45)
--- NOTE | 2019-03-24 15:53 | CT ---
INDICATION: Dyspnea. Rule out pulmonary embolism. No lung cancer. TECHNIQUE: Volumetric helical scanning of the thorax was performed during infusion of 100 cc of Isovue 370 contrast material IV, timing optimized for pulmonary arterial opacification. Coronal and sagittal reconstructions were obtained. COMPARISON: None. FINDINGS: The pulmonary arteries opacified despite exam being performed twice. Despite the suboptimal pulmonary arterial opacification, and acute embolus is demonstrated in the posterior basal segment artery of the left lower lobe on images [id number] of series 401. Additional emboli may well be present. The heart size is normal but the right ventricle appears to be under strain within RV/LV ratio of 1.1. Calcified coronary arterial plaque is demonstrated. Posterior left lower lobe consolidation is demonstrated it is more extensive than expected for pulmonary infarction. Although this may be due at least in part to infarction, pneumonia is suspected. Underlying neoplasm cannot be excluded. The lungs are otherwise clear. Centrilobular emphysema is noted. A small left pleural effusion is demonstrated. No significant airway abnormality is evident. No mediastinal or hilar lymphadenopathy is demonstrated. Scattered mixed lytic and blastic bone lesions are demonstrated, consistent with metastatic disease. Narrowing of the thoracic canal at T8-9 due to expansion of the posterior elements and right T8 vertebral body is noted. Images of the upper abdomen demonstrate adrenal gland enlargement bilaterally. IMPRESSION: 1. Suboptimal pulmonary arterial opacification but acute pulmonary embolism demonstrated along with evidence of right heart strain 2. Extensive osseous metastatic disease. 3. Left lower lobe consolidation which may be due at least in part to pulmonary infarction. However, pneumonia is suspected. Consider underlying carcinoma as well. 4. Small left pleural effusion. 5. Emphysema. 6. Coronary artery disease. 7. Bilateral adrenal gland enlargement. These findings were discussed with Dr. Guzmán at 3:50 p.m. on 03/24/2019. Please note that all CT scans at this facility use dose modulation, iterative reconstruction, and/or weight-based dosing when appropriate to reduce radiation dose to as low as reasonably achievable. Dictated by Omid Villafana MD @ Mar 24 2019 3:32PM Signed by Dr. Omid Villafana @ Mar 24 2019 3:51PM
[2019-03-24] MEDS ORDERED: Sucralfate 1 GM Tab PO SCH (17:00)
[2019-03-24] MEDS ORDERED: Insulin Aspart 100 Units/ML 3 ML Pen SUBCUT SCH (17:00)
[2019-03-24] MEDS ORDERED: Sodium Chloride 0.9% 0 ML ONE (17:32)
[2019-03-24] MEDS ORDERED: Iopamidol 755 MG/ML 500 ML Multipack Bottle IVPUSH STA (18:26)
[2019-03-24] MEDS ORDERED: Pantoprazole 40 MG Tab.CR PO SCH (21:00)
--- NOTE | 2019-03-25 18:04 | ECHO ---
EXAM DATE: 03/24/19 PATIENT'S AGE: 68 The echocardiogram report can be seen in this patient's EMR (Electronic Medical Record) in the REPORTS section. The report has also been scanned into PACs. [place]
== END 2019-03-24 18:32 | DRG 175 ==
LOC: MW.ED 08:15 → MW.ICU 10:20
PROVIDERS: ADMIT Student in an Organized Health Care Education/Training Program; ATTEND Student in an Organized Health Care Education/Training Program
DX: I26.99 Other pulmonary embolism without acute cor pulmonale (principal); R09.02 Hypoxemia; J96.01 Acute respiratory failure with hypoxia; J18.9 Pneumonia, unspecified organism; D61.810 Antineoplastic chemotherapy induced pancytopenia; C34.90 Malignant neoplasm of unspecified part of unspecified bronchus or lung; I48.91 Unspecified atrial fibrillation; E11.9 Type 2 diabetes mellitus without complications; Z88.8 Allergy status to other drugs, medicaments and biological substances; Z87.891 Personal history of nicotine dependence; I10 Essential (primary) hypertension; H54.7 Unspecified visual loss; Z79.01 Long term (current) use of anticoagulants; Z79.84 Long term (current) use of oral hypoglycemic drugs; Z79.899 Other long term (current) drug therapy
CPT/HCPCS: 36415; 71045; 80053; 83605; 83735; 84443; 84484; 85025; 85610; 87040 ×2; 93005; J3490 ×2; J7030; 36600; 71275; 71275-26; 81001; 82803; 82962; 87077; 87186; 87899; 93306; 94640; 96374; 99284; 99285-25; A9270-GY; J1650; J1815-GY; J1956; J2543; J3370; J7050; J7620-GY; J8540; Q9967